=== PATIENT | female | born 1950 | race Caucasian/White ===

== ENCOUNTER 2018-12-19 14:12 | Emergency (ER) | payer MEDICARE, OTHER ==
[2018-12-19 14:25] VITALS: BP 152/82
--- NOTE | 2018-12-19 14:56 | UC ---
Hand/Wrist HPI - HPI Summary HPI Summary: 68-year-old woman comes in with a chief complaint of right wrist pain after a fall last evening. She fell with outstretched hand. Pain is primarily on the radial side and is worse when she moves her thumb. No loss of range of motion or decreased sensation or weakness. No skin break. She took some ibuprofen which decreases the pain. - History Of Current Complaint Chief Complaint: UCUpperExtremity Stated Complaint: RT WRIST INJURY Time Seen by Provider: 12/19/18 14:20 Pain Intensity: 1 - Allergies/Home Medications Allergies/Adverse Reactions: Allergies Allergy/AdvReac Type Severity Reaction Status Date / Time hydrocodone Allergy Severe Rash Verified 12/19/18 14:25 PMH/Surg Hx/FS Hx/Imm Hx Previously Healthy: Yes Endocrine History: Diabetes Cardiovascular History: Hypertension - Surgical History Surgical History: Yes Surgery Procedure, Year, and Place: 20 YRS AGO [place]ILLECTOMY, [place]. 1997 [place] [facility] [place] 2009-05/19/2015 MULTIPLE BILATERAL CYSTOSCOPIES RETROGRADE AND URETERAL ST[place]IONS[place] [facility] [place]. [place] LAPAROSCOPIC VENTRAL HERNIA REPAIR WITH MESH, [facility] [place] - Family History Known Family History: Positive: Non-Contributory - Social History Alcohol Use: Rare Alcohol Amount: 1 PER MONTH Substance Use Type: None Smoking Status (MU): Former Smoker Type: Cigarettes Amount Used/How Often: <LESS THAN A PPD Length of Time of Smoking/Using Tobacco: 10 Have You Smoked in the Last Year: No When Did the Patient Quit Smoking/Using Tobacco: 1985 Review of Systems All Other Systems Reviewed And Are Negative: Yes Constitutional: Positive: Negative Skin: Positive: Negative Eyes: Positive: Negative ENT: Positive: Negative Respiratory: Positive: Negative Cardiovascular: Positive: Negative Gastrointestinal: Positive: Negative Motor: Positive: Negative Neurovascular: Positive: Negative Musculoskeletal: Positive: Other: - SEE HPI Neurological: Positive: Negative Psychological: Positive: Negative Is Patient Immunocompromised?: No Physical Exam Triage Information Reviewed: Yes Appearance: Well-Appearing, No Pain Distress, Well-Nourished Vital Signs: Initial Vital Signs Temp 98.5 F 12/19/18 14:20 Pulse 66 12/19/18 14:20 Resp 18 12/19/18 14:20 BP 152/82 12/19/18 14:20 Pulse Ox 99 12/19/18 14:20 Vital Signs Reviewed: Yes Eye Exam: Normal Eyes: Positive: Conjunctiva Clear Neck: Positive: Supple Respiratory: Positive: No respiratory distress Musculoskeletal: Positive: Other: - Right wrist is tender to palpation at the base of the thumb and distal radius. No snuffbox tenderness. Fingers and wrist all have full range of motion however the pain increases with movement of the thumb. No sensation deficit. No skin break. Strength 5 out of 5. Normal capillary refill. Elbow has full range of motion. Neurological: Positive: Alert, Muscle Tone Normal Psychological: Positive: Age Appropriate Behavior Skin Exam: Normal Hand/Wrist Course/Dx - Course Course Of Treatment: Patient Name: RUSLAN CRUZ Medical Record#: [id number] Ordering Physician: Wilbert ROY Acct.#: [id number] : 1950 Age: 68 Sex: F Location: [facility] Exam Date: 12/19/18 143 ADM Status: REG ER Order Information: WRIST RIGHT 3+ VWS Accession Number: [id number] CPT: 07921 Indication: Right wrist pain 3 views of the wrist demonstrates no fracture. Degenerative changes of the first carpal metacarpal joint is noted. No other bone or joint abnormality is identified. IMPRESSION: Degenerative changes of the first carpal metacarpal joint without fracture. <Electronically signed by Sharla Figueroa MD in [place]> 12/19/18 2903 I discussed the x-rays with the patient. Patient was placed a thumb spica splint by nursing and clinic patient neurovascular intact after placement of the thumb spica splint. Patient will continue the ibuprofen as needed also icing it and resting it. Plan is to follow-up with sports medicine or orthopedics if not completely improved. - Differential Dx/Diagnosis Provider Diagnosis: Right wrist sprain Discharge - Sign-Out/Discharge Documenting (check all that apply): Patient Departure All imaging exams completed and their final reports reviewed: Yes - Discharge Plan Condition: Stable Disposition: HOME Patient Education Materials: Wrist Sprain (ED) Referrals: Fantasma Beal MD [Primary Care Provider] - [facility] [Provider Group] Additional Instructions: FOLLOW UP WITH SPORTS MEDICINE IF NOT COMPLETELY IMPROVED. GET RECHECKED SOONER IF YOUR CONDITION WORSENS OR ANY QUESTIONS OR CONCERNS. - Billing Disposition and Condition Condition: STABLE Disposition: Home
== END 2018-12-19 15:15 | disposition home or self-care (01) ==
LOC: UCEAST 14:12
DX: S63.501A Unspecified sprain of right wrist, initial encounter (principal); W18.30XA Fall on same level, unspecified, initial encounter; Y92.9 Unspecified place or not applicable; E11.9 Type 2 diabetes mellitus without complications; I10 Essential (primary) hypertension; Z87.891 Personal history of nicotine dependence
CPT/HCPCS: 99213; G0463

== ENCOUNTER 2019-02-09 20:46 | Emergency (ER) | payer MEDICARE, OTHER ==
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
[2019-02-09] MEDS ORDERED: Ketorolac INJ* 30 MG/ML 1 ML VIAL IV ONE (22:24)
[2019-02-09] MEDS ORDERED: Ondansetron INJ* 2 MG/ML VIAL IV ONE (22:25)
[2019-02-09 22:38] LABS: ABS Basophils 0.1 10^3/ul (0-0.2); ABS Lymphocytes 1.5 10^3/ul (1.0-4.8); ABS Monocytes 1.5 10^3/ul (0-0.8); ABS Neutrophils 17.2 10^3/ul (1.5-7.7); Hematocrit 38 % (35-47); Hemoglobin 12.7 g/dL (12.0-16.0); Lymphocyte % 7.4 %; Mean Corpuscular HGB Conc 33 g/dL (31-36); Mean Corpuscular Hemoglobin 29 pg (27-31); Mean Corpuscular Volume 85 fL (80-97); Mean Platelet Volume 7.3 fL (7.4-10.4); Platelet Count 196 10^3/uL (150-450); Red Blood Count 4.46 10^6 /uL (3.70-4.87); Red Cell Distribution Width 13 % (10-15); White Blood Count 20.3 10^3/uL (3.5-10.8)
[2019-02-09 22:54] LABS: Albumin 3.6 g/dL (3.2-5.2); Albumin/Globulin Ratio 1.3 (1-3); BUN/Creatinine Ratio 19.3 (8-20); C Reactive Protein 119.11 mg/L (<8.01); Calcium 8.4 mg/dL (8.6-10.3); EGFR African American 57.7 (>60); EGFR Non-African American 47.7 (>60); Globulin 2.7 g/dL (2-4); Potassium 3.7 mmol/L (3.5-5.0); Total Bilirubin 0.7 mg/dL (0.2-1.0); Total Protein 6.3 g/dL (6.4-8.9)
[2019-02-09 22:56] LABS: Troponin I 0.02 ng/mL (<0.04)
[2019-02-09 23:04] LABS: Urine Appearance Cloudy; Urine Bacteria 1+ (Absent); Urine Bilirubin Negative (Negative); Urine Blood 1+ (Negative); Urine Color Yellow; Urine Glucose Negative (Negative); Urine Ketones Negative (Negative); Urine Nitrite Negative (Negative); Urine Protein 2+(100 mg/dL) (Negative); Urine Red Blood Cell 2+(6-10/hpf) (Absent); Urine Specific Gravity 1.016 (1.010-1.030); Urine Squamous Epithelial Cell Present (Absent); Urine Urobilinogen Negative (Negative); Urine White Blood Cell 3+(>20/hpf) (Absent)
[2019-02-10] MEDS ORDERED: cefTRIAXone(*) 2 GM in NS 0.9% 100 ML* 100 ML IVPB ONE ×2
[2019-02-10 00:53] VITALS: BP 130/65
--- NOTE | 2019-02-10 14:07 | PN ---
Progress Note - Progress Note Date of Service: 02/09/19 Note: Lab called at 2:05 PM 2 positive blood cultures, both gram-negative bacilli Patient was seen here for UTI and weakness 20,000 white count She was placed on Keflex and discharged last evening Provider, Lynette, called at 2:05 PM and left message with patient Also called daughter, however was unable to leave a message Gave report to charge nurse, Chloe and will continue to call back patient
== END 2019-02-10 00:53 | disposition home or self-care (01) ==
LOC: ED 20:46
DX: N39.0 Urinary tract infection, site not specified (principal); E11.9 Type 2 diabetes mellitus without complications; D64.9 Anemia, unspecified; I10 Essential (primary) hypertension; E78.00 Pure hypercholesterolemia, unspecified; J45.909 Unspecified asthma, uncomplicated; K21.9 Gastro-esophageal reflux disease without esophagitis; F41.9 Anxiety disorder, unspecified; F32.9 Major depressive disorder, single episode, unspecified; Z90.710 Acquired absence of both cervix and uterus; Z98.84 Bariatric surgery status; Z87.891 Personal history of nicotine dependence; Z79.4 Long term (current) use of insulin; Z79.899 Other long term (current) drug therapy; Z88.5 Allergy status to narcotic agent
CPT/HCPCS: 36415; 80053; 81003; 81015; 83605; 84484; 85025; 86140; 87040; 87077; 87086; 87186; 87205; 93005; 96365; 96375; 99284; J0696; J1885; J2405

== ENCOUNTER 2019-02-10 21:15 | Inpatient (IN) | payer MEDICARE, OTHER ==
[2019-02-10 21:51] LABS: ABS Basophils 0.1 10^3/ul (0-0.2); ABS Lymphocytes 0.9 10^3/ul (1.0-4.8); ABS Monocytes 0.6 10^3/ul (0-0.8); ABS Neutrophils 10.1 10^3/ul (1.5-7.7); Eosinophil % 0.4 %; Hematocrit 36 % (35-47); Hemoglobin 12.1 g/dL (12.0-16.0); Lymphocyte % 8.1 %; Mean Corpuscular HGB Conc 34 g/dL (31-36); Mean Corpuscular Hemoglobin 29 pg (27-31); Mean Corpuscular Volume 87 fL (80-97); Mean Platelet Volume 7.7 fL (7.4-10.4); Platelet Count 169 10^3/uL (150-450); Red Blood Count 4.14 10^6 /uL (3.70-4.87); Red Cell Distribution Width 14 % (10-15); White Blood Count 11.7 10^3/uL (3.5-10.8)
[2019-02-10 22:08] LABS: ALT 105 U/L (7-52); AST 123 U/L (13-39); Albumin 3.5 g/dL (3.2-5.2); Albumin/Globulin Ratio 1.2 (1-3); Alkaline Phosphatase 102 U/L (34-104); Anion Gap 6 mmol/L (2-11); Blood Urea Nitrogen 34 mg/dL (6-24); CO2 Carbon Dioxide 27 mmol/L (22-32); Calcium 8.5 mg/dL (8.6-10.3); Chloride 104 mmol/L (101-111); EGFR African American 47.1 (>60); EGFR Non-African American 38.9 (>60); Globulin 2.9 g/dL (2-4); Glucose 341 mg/dL (70-100); Potassium 3.4 mmol/L (3.5-5.0); Sodium 137 mmol/L (135-145); Total Protein 6.4 g/dL (6.4-8.9)
--- NOTE | 2019-02-10 22:16 | ED ---
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 She was seen yesterday in [facility] for UTI, prescribed Keflex, and discharged home. She received a call for positive blood cultures and returned to [facility] afterwards. She rates her current pain severity a 3/10. No aggravating or alleviating factors noted. She also reports left sided flank pain and burning with urination. Pt has Hx of DM and HTN. Home Medications Medication Instructions Recorded Confirmed Type ALPRAZolam TAB* [Xanax TAB*] 0.25 mg PO Q6H PRN 11/27/14 02/10/19 History Albuterol HFA INHALER* [Ventolin 2 puff INH Q6H PRN 11/27/14 02/10/19 History HFA Inhaler*] Cyanocobalamin INJ * [Vitamin B12 1,000 mcg IM MONTHLY 05/12/15 02/10/19 History INJ *] Acetaminophen/Diphenhydramine 2 tab PO BEDTIME 02/09/19 02/10/19 History [Tylenol Pm Ex-Strength Caplet] Bupropion XL* [Wellbutrin XL *] 150 mg PO DAILY 02/09/19 02/10/[address] CAP* [Cymbalta CAP*] 60 mg PO QAM 02/09/19 02/10/19 History Gabapentin CAP(*) [Neurontin 300 300 mg PO TID 02/09/19 02/10/19 History CAP(*)] Insulin GLARGINE(*) [Lantus(*)] 14 units SUBCUT QAM 02/09/19 02/10/19 History LevoCETirizine TAB (NF) [Xyzal TAB 5 mg PO DAILY 02/09/19 02/10/19 History (NF)] Losartan TAB* [Cozaar TAB*] 100 mg PO QAM 02/09/19 02/10/19 History Montelukast Sodium TAB* [Singulair 10 mg PO DAILY 02/09/19 02/10/19 History 10 MG TAB*] Multivitamins/Minerals TAB* 1 tab PO QAM 02/09/19 02/10/19 History [Theragran/minerals TAB*] [place]-3 Fatty Acids (Nf) [Fish Oil 2,000 mg PO DAILY 02/09/19 02/10/19 History (NF)] SitaGLIPtin (NF) [Januvia (NF)] 100 mg PO DAILY 02/09/19 02/10/19 History Verapamil SR CAP* [Calan Sr CAP*] 180 mg PO QAM 02/09/19 02/10/19 History Cephalexin CAP* [Keflex CAP*] 500 mg PO QID 10 Days #40 cap 02/10/19 02/10/19 Rx traMADol TAB* [Ultram*] 50 mg PO TID PRN 02/10/19 02/10/19 History - History of Current Complaint Chief Complaint: EDGeneral Time Seen by Provider: 02/10/19 21:22 Hx Obtained From: Patient Onset/Duration: Started Days Ago, Still Present Timing: Constant, Lasting Days Initial Severity: Mild Current Severity: Mild Pain Intensity: 3 Pain Scale Used: 0-10 Numeric Aggravating Factors: Nothing Alleviating Factors: Nothing Associated Signs and Symptoms: Chills, Other: - pos - burning, fever, left sided flank pain - Allergy/Home Medications Allergies/Adverse Reactions: Allergies Allergy/AdvReac Type Severity Reaction Status Date / Time hydrocodone Allergy Severe Rash Verified 02/09/19 20:59 Home Medications: Home Medications traMADol TAB* [Ultram*] 50 mg PO TID PRN 02/10/19 [History Confirmed 02/10/19] PMH/Surg Hx/FS Hx/Imm Hx Endocrine/Hematology History: Reports: Hx Diabetes - TYPE 2, Hx Anemia - HX OF INFUSION - NONE IN 2 YEARS Denies: Hx Sickle Cell Disease, Hx Thyroid Disease Cardiovascular History: Reports: Hx Hypertension - WELL CONTROLLED WITH MEDICATION, Other Cardiovascular Problems/Disorders - CHOLESTEROL CONTROL WITH MEDS Denies: Hx Pacemaker/ICD Respiratory History: Reports: Hx Asthma - RESCUE INHALER - NO PROBLEM IN YEAR Denies: Hx Chronic Obstructive Pulmonary Disease (COPD), Other Respiratory Problems/Disorders GI History: Reports: Hx Gastroesophageal Reflux Disease, Hx Irritable Bowel Denies: Hx Ulcer, Other GI Disorders History: Reports: Hx Kidney Stones - MANY, SMALL NOW Denies: Hx Dialysis, Hx Renal Disease Musculoskeletal History: Reports: Hx Arthritis - RIGHT GREAT TOE, BILATERAL KNEES Denies: Other Musculoskeletal History Sensory History: Reports: Hx Contacts or Glasses - READING GLASSES Denies: Hx Hearing Aid Opthamlomology History: Reports: Hx Contacts or Glasses - READING GLASSES Neurological History: Reports: Hx Nerve Disease - FOBROMYALGIA, Other Neuro Impairments/Disorders - FIBROMYALGIA Psychiatric History: Reports: Hx Anxiety, Hx Depression - CONTROL WITH MEDS Denies: Hx Panic Disorder - Cancer History Hx Chemotherapy: No Hx Radiation Therapy: No - Surgical History Surgery Procedure, Year, and Place: 20 YRS AGO TONSILLECTOMY, [place]. 1997 PARTIAL HYSTERECTOMY, [facility]. 1997 GASTRIC BYPASS, [place]. 2009-05/19/2015 MULTIPLE BILATERAL CYSTOSCOPIES RETROGRADE AND URETERAL STENT INSERTIONS, [facility]. 2012 LAPAROSCOPIC VENTRAL HERNIA REPAIR WITH MESH, [facility] Anesthesia Reactions: Yes - PERIOD OF APNEA AFTER RETURNING TO FLOOR 2012 - NO PROBLEMS SINCE Infectious Disease History: No Infectious Disease History: Denies: Hx Hepatitis, Hx Human Immunodeficiency Virus (HIV), Traveled Outside the [place] in Last 30 Days - Family History Known Family History: Negative: Renal Disease - Social History Alcohol Use: Occasionally Alcohol Amount: 1 PER MONTH Hx Substance Use: No Substance Use Type: Reports: None Hx Tobacco Use: Yes Smoking Status (MU): Former Smoker Type: Cigarettes Amount Used/How Often: <LESS THAN A PPD Length of Time of Smoking/Using Tobacco: 10 Have You Smoked in the Last Year: No Review of Systems Positive: Fever, Chills Gastrointestinal: Other - pos - left sided flank pain Positive: burning All Other Systems Reviewed And Are Negative: Yes Physical Exam - Summary Physical Exam Summary: General: Well-developed, Well-nourished, obese, female. No acute distress. HEENT: Normocephalic, Atraumatic. Eyes: Conjuctiva normal, PERRL. Ears: TMs within normal limits. Nares: (-) discharge, (-) erythema. Oropharynx: Clear, mucous membranes moist, (-) exudates. Neck: Soft, FROM, (-) lymphadenopathy, (-) thyromegaly, (-) JVD. Cardiovascular: Normal sinus rhythm, (-) murmur. Lungs: Clear to auscultation bilaterally (-) wheezes, (-) rales, (-) rhonchi. Abdomen: Soft, non-tender, non-distended, (-) organomegaly, normal bowel sounds. Back: (-) CVA tenderness Extremities: No edema. Skin: Warm, dry, (-) rash. Neuro: Alert and oriented x3, no focal deficits. Psychiatric: Mood normal, affect normal. Triage Information Reviewed: Yes Vital Signs On Initial Exam: Initial Vitals Temp Pulse Resp BP Pulse Ox 97.8 F 62 18 141/61 96 02/10/19 21:17 02/10/19 21:17 02/10/19 21:17 02/10/19 21:17 02/10/19 21:17 Vital Signs Reviewed: Yes Diagnostics - Vital Signs Vital Signs Temp Pulse Resp BP Pulse Ox 02/10/19 21:17 97.8 F 62 18 141/61 96 - Laboratory Lab Results: Lab Results 02/10/19 02/10/19 02/10/19 Range/Units 21:44 21:44 21:44 WBC 11.7 H (3.5-10.8) 10^3/uL RBC 4.14 (3.70-4.87) 10^6 /uL Hgb 12.1 (12.0-16.0) g/dL Hct 36 (35-47) % MCV 87 (80-97) fL MCH 29 (27-31) pg MCHC 34 (31-36) g/dL RDW 14 (10-15) % Plt Count 169 (150-450) 10^3/uL MPV 7.7 (7.4-10.4) fL Neut % (Auto) 85.7 % Lymph % (Auto) 8.1 % Casey % (Auto) 5.4 % Eos % (Auto) 0.4 % Baso % (Auto) 0.4 % Absolute Neuts (auto) 10.1 H (1.5-7.7) 10^3/ul Absolute Lymphs (auto) 0.9 L (1.0-4.8) 10^3/ul Absolute Monos (auto) 0.6 (0-0.8) 10^3/ul Absolute Eos (auto) 0.0 (0-0.6) 10^3/ul Absolute Basos (auto) 0.1 (0-0.2) 10^3/ul Absolute Nucleated RBC 0.0 10^3/ul Nucleated RBC % 0.0 Sodium 137 (135-145) mmol/L Potassium 3.4 L (3.5-5.0) mmol/L Chloride 104 (101-111) mmol/L Carbon Dioxide 27 (22-32) mmol/L Anion Gap 6 (2-11) mmol/L BUN 34 H (6-24) mg/dL Creatinine 1.36 H (0.51-0.95) mg/dL Est GFR ( Amer) 47.1 (>60) Est GFR (Non-Af Amer) 38.9 (>60) BUN/Creatinine Ratio 25.0 H (8-20) Glucose 341 H (70-100) mg/dL Lactic Acid 1.1 (0.5-2.0) mmol/L Calcium 8.5 L (8.6-10.3) mg/dL Total Bilirubin 0.30 (0.2-1.0) mg/dL AST 123 H (13-39) U/L ALT 105 H (7-52) U/L Alkaline Phosphatase 102 (34-104) U/L Total Protein 6.4 (6.4-8.9) g/dL Albumin 3.5 (3.2-5.2) g/dL Globulin 2.9 (2-4) g/dL Albumin/Globulin Ratio 1.2 (1-3) Result Diagrams: 02/10/19 21:44 02/10/19 21:44 Lab Statement: Any lab studies that have been ordered have been reviewed, and results considered in the medical decision making process. - CT CT A/P CT Interpretation Completed By: Radiologist Summary of CT Findings: IMPRESSION: There is nonobstructive bilateral nephrolithiasis. No visible ureteral. calculus. ED Physician has reviewed this report. 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 She was seen yesterday in [facility] for UTI, prescribed Keflex, and discharged home. She also reports left sided flank pain and burning with urination. Test results normal except for WBC 11.7, Absolute Neuts 10.1, Absolute Lymphs 0.9, Potassium 3.4, BUN 34, Creatinine 1.36, BUN/ Creatinine 25.0, Glucose 341, Calcium 8.5, AST 123, 105, ALT, CRP 285.61, 1+ Urine protein, 2+ Urine WBC, 1+ Urine RBC, Ur Squamous Epith Cells Present, and 1 + Ur Glucose. A CT A/P reveals: There is nonobstructive bilateral nephrolithiasis. No visible ureteral calculus. Final Dx are UTI and positive blood cultures. Hospitalist was consulted @ 2230 and will admit the pt to [facility]. - Diagnoses Provider Diagnoses: UTI (urinary tract infection), Positive blood culture - Provider Notifications Discussed Care Of Patient With: Nain Grayson - Hospitalist will admit the pt to [facility]. Time Discussed With Above Provider: 22:30 Instructed by Provider To: Admit As Inpatient Discharge ED - Sign-Out/Discharge Documenting (check all that apply): Patient Departure - admit All imaging exams completed and their final reports reviewed: Yes Patient Received Moderate/Deep Sedation with Procedure: No - Discharge Plan Condition: Fair Disposition: ADMITTED TO [facility] - Billing Disposition and Condition Condition: FAIR Disposition: Admitted to [facility] - Attestation Statements Document Initiated by Mainibe: Yes Documenting Scribe: Milind Kim Provider For Whom Scribe is Documenting (Include Credential): Patty Geller MD Scribe Attestation: Milind Stephens, scribed for Patty Geller MD on 02/11/19 at 0421. Scribe Documentation Reviewed: Yes Provider Attestation: The documentation as recorded by the Milind prado accurately reflects the service I personally performed and the decisions made by , Patty Geller MD Status of Scribe Document: Viewed
[2019-02-10 22:20] LABS: Urine Appearance Clear; Urine Bacteria Absent (Absent); Urine Bilirubin Negative (Negative); Urine Blood Negative (Negative); Urine Color Yellow; Urine Glucose 1+(50 mg/dL) (Negative); Urine Ketones Negative (Negative); Urine Nitrite Negative (Negative); Urine Protein 1+(30 mg/dL) (Negative); Urine Red Blood Cell 1+(3-5/hpf) (Absent); Urine Specific Gravity 1.023 (1.010-1.030); Urine Squamous Epithelial Cell Present (Absent); Urine Urobilinogen Negative (Negative); Urine White Blood Cell 2+(11-20/hpf) (Absent)
[2019-02-10 23:03] LABS: C Reactive Protein 285.61 mg/L (<8.01)
[2019-02-10] MEDS ORDERED: NS 0.9% 1000 ML** 1,000 ML IV ONE (23:05)
[2019-02-11] MEDS ORDERED: ALPRAZolam TAB* 0.25 MG PO PRN (00:09)
[2019-02-11] MEDS ORDERED: Dextrose 50% VIAL 50 ml IV PUSH PRN (00:11)
[2019-02-11] MEDS: cefTRIAXone(*) 1 GM in NS 0.9% 50 ML* 50 ML IVPB SCH (00:37)
[2019-02-11] MEDS ORDERED: Albuterol HFA INHALER* 8 gm MDI INH PRN (01:42)
[2019-02-11] MEDS ORDERED: NS 0.9% 1000 ML** 1,000 ML IV ONE (02:39)
[2019-02-11] MEDS ORDERED: Ibuprofen TAB* 400 MG PO ONE (02:40)
[2019-02-11 02:55] LABS: Acetaminophen < 15 mcg/mL
[2019-02-11] MEDS: traMADol TAB* 50 MG PO PRN ×2 (04:00→12:50)
[2019-02-11 06:43] LABS: INR 1.17 (0.82-1.09)
[2019-02-11 06:45] LABS: ABS Lymphocytes 1.1 10^3/ul (1.0-4.8); ABS Monocytes 0.5 10^3/ul (0-0.8); ABS Neutrophils 7.3 10^3/ul (1.5-7.7); Eosinophil % 0.3 %; Hematocrit 33 % (35-47); Hemoglobin 11.1 g/dL (12.0-16.0); Lymphocyte % 12.1 %; Mean Corpuscular HGB Conc 34 g/dL (31-36); Mean Corpuscular Hemoglobin 29 pg (27-31); Mean Corpuscular Volume 86 fL (80-97); Mean Platelet Volume 8.2 fL (7.4-10.4); Platelet Count 157 10^3/uL (150-450); Red Blood Count 3.79 10^6 /uL (3.70-4.87); Red Cell Distribution Width 13 % (10-15)
[2019-02-11 06:54] LABS: BUN/Creatinine Ratio 23.1 (8-20); Calcium 8.1 mg/dL (8.6-10.3); EGFR African American 64.2 (>60); Potassium 3.3 mmol/L (3.5-5.0)
[2019-02-11] MEDS: Insulin LISPRO* 1 UNITS UNIT SUBCUT SCH ×4 (07:55→22:38)
--- NOTE | 2019-02-11 08:59 | HP ---
HISTORY AND PHYSICAL: DATE OF ADMISSION: 02/11/19. ADMITTING PROVIDER: Jacinto Mckeon M.D. PRIMARY CARE PROVIDER: Dr. Beal. OUTPATIENT UROLOGIST: Dr. Olivas. CHIEF COMPLAINT: Fevers, chills, bilateral flank pain, dysuria. HISTORY OF PRESENT ILLNESS: Desirae Gil is a 68-year-old female with a past medical history of insulin-dependent diabetes mellitus, hypertension, hyperlipidemia, fibromyalgia, and nephrolithiasis. She presented to the emergency room on 02/09/19, 2 days prior to admission with complaint of dysuria since the night before, and flank pain worse on the right that had started on 3 to 4 days prior to this admission. It was a sharp stabbing pain 7 to 10 at its worst radiating into the groins, occasionally also on the left side. Also had some neck discomfort and right arm discomfort. It is a throbbing like pain that comes in waves. She had a positive urine culture in the emergency room and was given Keflex 500 mg 4 times a day. She was called the next day to say that her blood cultures were positive with gram-negative bacilli, and she had had continued chills and shakes and pain, so re-presented to [facility] for further evaluation. On initial visit, she also had leukocytosis to 28.3, CRP of 119. On evaluation today, she had improved white count to 11.7, CRP was rechecked at 285, given her complaint of flank pain, history of nephrolithiasis , and waves of throbbing pain, ER tried to rule out obstructive kidney stones. She had a CT abdomen and pelvis without contrast, which demonstrated bilateral nephrolithiasis that was nonobstructing and no ureteral stones were noticed, and she was admitted for further treatment of gram- negative bacilli bacteremia , at this point 3 out of 4 vials, and resolving sepsis. She later spiked a fever up to 102.4. She got 2L total of normal saline. She had been taking Acetaminophen up to 1000 mg 3 times a day and has some transaminitis: AST was 123, ALT 105. Acetaminophen level was less than 15. She did have some headaches , nausea, and vomiting, and 2 days of diarrhea as well. PAST MEDICAL HISTORY: Insulin-dependent diabetes mellitus, hypertension, hyperlipidemia, fibromyalgia, and nephrolithiasis. MEDICATIONS: Included: 1. Tramadol 15 mg p.o. t.i.d. p.r.n. 2. Verapamil 108 mg p.o. q.a.m. 3. Januvia 100 mg daily. 4. Fish oil 2000 p.o. daily. 5. Singulair 10 mg p.o. daily. 6. Losartan 100 mg p.o. q.a.m. 7. Levocetirizine 5 mg p.o. daily. 8. Lantus 14 units subcutaneous q.a.m. 9. Neurontin 300 mg p.o. t.i.d. 10. Cymbalta 60 mg p.o. q.a.m. 11. Cyanocobalamin vitamin B12 of 1000 mcg monthly. 12. Recently started Keflex 500 mg p.o. 4 times a day. 13. Wellbutrin 150 mg p.o. daily. 14. Albuterol 2 puffs inhaled q.6 hours p.r.n. 15. Xanax 2.25 mg p.o. q.6 hours p.r.n. 16. Tylenol PM Extra Strength 2 tabs p.o. at bedtime, but has been taking throughout the day. ALLERGIES: HYDROCODONE, severe rash. FAMILY HISTORY: Mother at age 76 of COPD. Father at age 60 complications of diabetes. SOCIAL HISTORY: The patient quit smoking 25 to 30 years ago. Smoked 10 years total about one-third pack per day, occasional alcohol use. Denies drug use. 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 REVIEW OF SYSTEMS: Complete 14-point review of systems negative except as per HPI. PHYSICAL EXAMINATION GENERAL APPEARANCE: In no acute distress. VITAL SIGNS: Temperature initially was 97.8, but later increased to 102.4, heart rate 62, blood pressure 141/61, satting 96% on room air. HEENT: Normocephalic and atraumatic. Pupils are equal, round, and reactive to light. Extraocular motions are intact. No scleral icterus. LUNGS: Clear to auscultation bilaterally with no wheezing, rales or rhonchi. CARDIOVASCULAR: Regular rate and rhythm. No murmurs, gallops or rubs. ABDOMEN: Soft, nontender, nondistended. BACK: She has some pain to palpation of the bilateral flanks EXTREMITIES: Warm and well perfused. No peripheral edema. SKIN: No lesions or rashes. DIAGNOSTIC STUDIES/LAB DATA: Labs: White count 11.7, hemoglobin 12.1, hematocrit 36, platelets 169. Sodium 137, potassium 3.4, chloride 104, carbon dioxide 27, BUN 34, creatinine 1.36, glucose 341, lactic acid 1.1, total bili 0.3. AST 123, ALT 105, alk-phos 102, CRP 285, albumin 3.5. Urinalysis 1+ protein, 2+ wbc's, 1+ glucose. Microbiology 07/31, blood cultures from 02/10/19 at 0500 hours with gram- negative bacilli. Imaging: CT abdomen and pelvis without contrast demonstrated bilateral nephrolithiasis without any obstruction and no visible ureteral calculus. ASSESSMENT AND PLAN: Desirae Gil is a 68-year-old with past medical history of insulin-dependent diabetes mellitus, nephrolithiasis, hypertension, hyperlipidemia, fibromyalgia, who had a positive urinalysis 24 hours prior to admission, has been treated with Keflex at home, but had gram-negative bacilli bacteremia on that evaluation and returns with continued flank pain and chills and rigors, concerning for pyelonephritis and gram-negative bacteremia, being admitted. She does still meet sepsis criteria with leukocytosis and now with recurrent fever. CRP is elevated. CT abdomen and pelvis showed bilateral nephrolithiasis, but no obstruction or ureteral stones. I am starting ceftriaxone and following up her blood and urine cultures. She was given a second liter of bolus, avoiding Tylenol for now given her frequent Tylenol use at home and transaminitis. Consideration for urology consult depending on clinical course but certainly as an outpatient at the very least. No signs of obstructing stone that would require urgent decompression. The kidney function is slightly up with MICRO COMPUTER DATA PROCESSOR up to 1.36 from 1.14, 24 hours prior and will hold her losartan 100 mg also in the setting of resolving sepsis. For her insulin-dependent diabetes mellitus, continue her Lantus 14 units q.a.m. , [id number] testing q.a.c. and h.s. with a sliding scale insulin coverage. Reduce her Januvia dose in half given her creatinine clearance. For hypertension, continue her verapamil 180 mg daily, but as said holding her losartan in the setting of resolving sepsis and slight bump in creatinine. For fibromyalgia, continue gabapentin at reduced dosing of 300 mg p.o. b.i.d. For anxiety, continue her Xanax 0.25 mg p.o. q.6 hours p.r.n. For her pain, continue her home tramadol 50 mg p.o. t.i.d. p.r.n. We will get BMP and CBC daily. Follow up the INR that was added given her Tylenol use. She is a full code. Medical surrogate is her 2 daughters, Alysha Cason and Roberta Glez. She should get a heart-healthy carbohydrate consistent diet. She will be admitted to observation status. [id number]/[facility] #: [id number] MTDD
[2019-02-11] MEDS ORDERED: SitaGLIPtin (NF) 100 MG TAB PO SCH (09:00)
[2019-02-11] MEDS: Multivitamins/Minerals TAB PO SCH (11:14)
[2019-02-11] MEDS: Verapamil SR CAP* 180 MG PO SCH (11:15)
[2019-02-11] MEDS: Gabapentin CAP(*) 300 MG PO SCH ×2 (11:15→20:31)
[2019-02-11] MEDS: DULoxetine DR CAP* 60 MG CAP.DR PO SCH (11:15)
[2019-02-11] MEDS: BuPROPion XL* 150 MG TAB.XL PO SCH (11:15)
[2019-02-11] MEDS: Montelukast Sodium TAB* 10 MG PO SCH (11:15)
[2019-02-11] MEDS: Insulin GLARGINE(*) 1 UNITS UNIT SUBCUT SCH (11:16)
--- NOTE | 2019-02-11 14:53 | PN ---
Subjective Date of Service: 02/11/19 Interval History: Ms. Gil reports that she is feeling much better but she does still have some mild left sided flank pain. She denies chest pain, SOB, or nausea. She is tolerating oral intake well. Objective Active Medications: Acetaminophen (Tylenol Tab*) 650 mg PO Q6H PRN Albuterol (Ventolin Hfa Inhaler*) 2 puff INH Q6H PRN Alprazolam (Xanax Tab*) 0.25 mg PO Q6H PRN Bupropion HCl (Wellbutrin Xl *) 150 mg PO DAILY ELENA Dextrose (Dextrose 50% Vial 50 Ml*) 25 ml IV PUSH .FOR FS < 60 - SS PRN Duloxetine HCl (Cymbalta Cap*) 60 mg PO QAM ELENA Gabapentin (Neurontin Cap(*)) 300 mg PO BID ELENA Ceftriaxone Sodium 1 gm/ (Sodium Chloride) 50 mls @ 100 mls/hr IVPB Q24H [facility] Insulin Glargine (Lantus(*)) 14 units SUBCUT QAM [facility] Insulin Human Lispro (Humalog*) 0 units SUBCUT ACHS ELENA; Protocol Montelukast Sodium (Singulair Tab*) 10 mg PO DAILY [facility] Multivitamins/Minerals (Theragran/Minerals Tab*) 1 tab PO QAM ELENA Sitagliptin Phosphate (Januvia (Nf)) 50 mg PO DAILY [facility]; Protocol Tramadol HCl (Ultram*) 50 mg PO TID PRN Verapamil HCl (Calan Sr Cap*) 180 mg PO QAM ELENA Vital Signs: Temp Pulse Resp BP Pulse Ox 98.5 F 62 18 132/57 95 02/11/19 11:15 02/11/19 11:15 02/11/19 12:50 02/11/19 11:15 02/11/19 11:15 Oxygen Devices in Use Now: None Appearance: Female sitting up in bed in NAD Eyes: No Scleral Icterus Ears/Nose/Mouth/Throat: Mucous Membranes Moist Neck: Trachea Midline Respiratory: Symmetrical Chest Expansion and Respiratory Effort, Clear to Auscultation Cardiovascular: NL Sounds; No Murmurs; No JVD, No Edema Abdominal: NL Sounds; No Tenderness; No Distention Extremities: No Edema Skin: No Rash or Ulcers Neurological: Alert and Oriented x 3, NL Muscle Strength and Tone Nutrition: Taking PO's Result Diagrams: 02/11/19 05:44 02/11/19 05:44 Additional Lab and Data: . Assess/Plan/Problems-Billing Assessment: Ms. Gil is a 68 yo F with a PMH of IDDM, hypertension, fibromylagia, and nephrolithiasis who was admitted on 02/11/19 with e coli UTI with bacteremia. - Patient Problems (1) E coli bacteremia Comment: - Febrile 102.4, but does not meet sepsis criteria - Secondary to UTI with 3/4 blood cultures positive for ecoli prior to admission. History of nephrolithiasis, CT abd/pelvis found non-obstructing stones only. - Continue ceftriaxone (2) Diabetes Comment: - BGs 130s - Continue lantus with lispro SSI coverage - Hold januvia (3) Hypertension Comment: - SBP 130s - Continue verapamil, hold losartan while acutely ill (4) Anxiety Comment: - With depression - Continue alprazolam, wellbutrin, duloxetine (5) DVT prophylaxis Comment: - Heparin SQ (6) Full code status Comment: Status and Disposition: Inpatient with ecoli bacteremia. Anticipate discharge to home when medically stable.
[2019-02-11] MEDS ORDERED: Potassium Chlor TAB* 20 MEQ TAB.ER PO ONE (18:03)
[2019-02-11] MEDS ORDERED: Phenazopyridine TAB* 100 MG PO PRN (18:28)
[2019-02-11] MEDS: Acetaminophen TAB* 325 MG PO PRN (20:31)
[2019-02-11] MEDS ORDERED: Nystatin TOP POWDER* 15 GM BTL TOPICAL SCH (21:00)
[2019-02-11] MEDS: Heparin VIAL(*) 5000 UNITS/ML VIAL (FIVE THOUSAND) SUBCUT SCH (22:37)
[2019-02-12] MEDS: cefTRIAXone(*) 1 GM in NS 0.9% 50 ML* 50 ML IVPB SCH (00:40)
[2019-02-12] MEDS ORDERED: Albuterol/Ipratropium NEB.SOL* Albuterol 2.5 MG/Ipratropium 0.5 MG 3 ML INH ONE (01:44)
[2019-02-12 05:06] LABS: Hematocrit 34 % (35-47); Hemoglobin 11.4 g/dL (12.0-16.0); Mean Corpuscular HGB Conc 34 g/dL (31-36); Mean Corpuscular Hemoglobin 29 pg (27-31); Mean Corpuscular Volume 86 fL (80-97); Red Cell Distribution Width 13 % (10-15); White Blood Count 8.5 10^3/uL (3.5-10.8)
[2019-02-12 05:07] LABS: BUN/Creatinine Ratio 16.7 (8-20); Calcium 8.8 mg/dL (8.6-10.3); EGFR African American 70.4 (>60); EGFR Non-African American 58.1 (>60); Potassium 3.9 mmol/L (3.5-5.0)
[2019-02-12 05:38] LABS: ABS Monocytes 0.5 10^3/ul (0-0.8); Eosinophil % 0.5 %; Lymphocyte % 11.2 %; Mean Platelet Volume 8.1 fL (7.4-10.4); Platelet Count 171 10^3/uL (150-450)
[2019-02-12] MEDS: Acetaminophen TAB* 325 MG PO PRN ×2 (05:46→20:41)
[2019-02-12] MEDS: Heparin VIAL(*) 5000 UNITS/ML VIAL (FIVE THOUSAND) SUBCUT SCH ×3 (06:49→20:40)
[2019-02-12] MEDS: Insulin LISPRO* 1 UNITS UNIT SUBCUT SCH ×4 (09:08→20:40)
[2019-02-12] MEDS: Verapamil SR CAP* 180 MG PO SCH (09:09)
[2019-02-12] MEDS: Gabapentin CAP(*) 300 MG PO SCH ×2 (09:09→20:42)
[2019-02-12] MEDS: Atorvastatin* 20 MG TAB PO SCH (09:09)
[2019-02-12] MEDS: Montelukast Sodium TAB* 10 MG PO SCH (09:09)
[2019-02-12] MEDS: Multivitamins/Minerals TAB PO SCH (09:09)
[2019-02-12] MEDS: BuPROPion XL* 150 MG TAB.XL PO SCH (09:12)
[2019-02-12] MEDS: Insulin GLARGINE(*) 1 UNITS UNIT SUBCUT SCH (09:12)
[2019-02-12] MEDS: DULoxetine DR CAP* 60 MG CAP.DR PO SCH (09:12)
--- NOTE | 2019-02-12 13:01 | CONS ---
CONSULTATION REPORT: DATE OF CONSULT: 02/12/19 REQUESTING PROVIDER: MANUELA Gutierrez CONSULTING SERVICE: Infectious Disease. REASON FOR CONSULTATION: Fever. IMPRESSION: 1. Fever, rigors, Escherichia coli bacteremia, dysuria, left flank pain, taken together she has left-sided pyelonephritis. CT scan did not show obstruction or hydronephrosis. She does have bilateral nephrolithiasis. Because of her pyelonephritis, we can expect a few nights of ongoing fever that will slowly improve over time. So far, she has had resolution of her rigors and night sweats but still has occasional chills and feverish feeling. Her dysuria is resolved as well. Flank pain is easing off. 2. Insulin-dependent diabetes mellitus. 3. Nephrolithiasis. RECOMMENDATIONS: Continue ceftriaxone another 24 hours. By tomorrow, we can likely change her to oral antibiotics in the form of Bactrim Double Strength tablet by mouth twice a day for another 7 days. Follow up with Dr. Olivas as an outpatient. HISTORY OF PRESENT ILLNESS: This is a 68-year-old woman with a history of nephrolithiasis, not much in the way of urinary tract infection, admitted with dysuria and bacteremia. She had had a couple days of dysuria, was seen in the emergency room on the , urinalysis suggested infection. She was discharged on Keflex and isolate came back with E. coli in the urine and in the blood 3 of 4 bottles. It is resistant to ampicillin, cefazolin, Cipro and Levaquin; intermediate to Zosyn and Augmentin; sensitive to Bactrim and ceftriaxone. Because of bacteremia, she was called back to the hospital. She was started on IV antibiotics. Followup cultures were taken and since that time she has had nightly fevers to about 38.6 to 38.7. She was initially having drenching sweats , which she did not have last night. She was initially having shaking chills, which have stopped. Her dysuria has gone. Her left flank pain which developed about the time she came into the hospital is improving as well. Her appetite is good. She has been up, walking around a little bit, feeling better. Initial CRP was 285. PAST MEDICAL HISTORY: 1. Nephrolithiasis. 2. Insulin-dependent diabetes mellitus. 3. Hypertension. 4. Hyperlipidemia. 5. Fibromyalgia. MEDICATIONS: 1. Tylenol. 2. Albuterol. 3. Xanax as needed. 4. Lipitor. 5. Bupropion. 6. Duloxetine. 7. Gabapentin. 8. Heparin subcutaneous injection. 9. Insulin glargine. 10. Insulin lispro. 11. Singulair. 12. Ceftriaxone 1 g a day. 13. Tramadol. 14. Verapamil. ALLERGIES: HYDROCODONE caused rash. FAMILY HISTORY: No recurrent infections. Mother at 76 with COPD. Father at 60 from diabetes complications. SOCIAL HISTORY: She lives in this area in the summer and then in [place] for the rest of the year. She is a nonsmoker. REVIEW OF SYSTEMS: All negative, except as noted above to a 12-point review of systems. PHYSICAL EXAM: Vital Signs: Temperature 36.6, heart rate 55, respiratory rate 18, blood pressure 135/64, oxygen saturation 97% on room air. In general, she is awake, not in distress. Neurologic: She is oriented x3, follows commands. Moves all extremities. HEENT: There is no conjunctival hemorrhage. Oropharynx , no lesions. Neck is supple without mass. Lymph Nodes: There is no cervical , supraclavicular, inguinal, axillary, or epitrochlear lymphadenopathy. Heart has regular rate and rhythm without murmurs, rubs, or gallops. Lungs are clear to auscultation bilaterally. Abdomen is soft, nontender, and nondistended. There are bowel sounds present. There is left flank tenderness to palpation. There is no right flank tenderness. Skin: There is no rash or splinter hemorrhage. Musculoskeletal: There is no spinal tenderness to palpation or joint synovitis. DIAGNOSTIC STUDIES/LAB DATA: Creatinine 0.9. White blood cell count 8.5, hemoglobin 11, platelets 171,000. Please see impressions and recommendations outlined above that I discussed with MANUELA Gutierrez. Thank you for asking me to see Ms. Gil in consultation. [id number]/[facility] #: [id number] ELIESER
--- NOTE | 2019-02-12 13:34 | PN ---
Subjective Date of Service: 02/12/19 Interval History: October continues to c/o suprapubic pain, L flank pain, intermittent headache. She states she has been having difficulty with sleep while in the hospital and feels fatigued. She had a fever this a.m., but none since then and denies chills/sweats. She denies n/v/d. Last BM was Tuesday. She is urinating without difficulty and denies dysuria, frequency, hematuria. Objective Active Medications: Acetaminophen (Tylenol Tab*) 650 mg PO Q6H PRN Albuterol (Ventolin Hfa Inhaler*) 2 puff INH Q6H PRN Alprazolam (Xanax Tab*) 0.25 mg PO Q6H PRN Atorvastatin Calcium (Lipitor*) 20 mg PO DAILY ELENA Bupropion HCl (Wellbutrin Xl *) 150 mg PO DAILY ELENA Dextrose (Dextrose 50% Vial 50 Ml*) 25 ml IV PUSH .FOR FS < 60 - SS PRN Duloxetine HCl (Cymbalta Cap*) 60 mg PO QAM ELENA Gabapentin (Neurontin Cap(*)) 300 mg PO BID ELENA Heparin Sodium (Porcine) (Heparin Vial(*)) 5,000 units SUBCUT Q8HR ELENA Ceftriaxone Sodium 1 gm/ (Sodium Chloride) 50 mls @ 100 mls/hr IVPB Q24H ELENA Insulin Glargine (Lantus(*)) 14 units SUBCUT QAM ELENA Insulin Human Lispro (Humalog*) 0 units SUBCUT ACHS ELENA; Protocol Montelukast Sodium (Singulair Tab*) 10 mg PO DAILY ELENA Multivitamins/Minerals (Theragran/Minerals Tab*) 1 tab PO QAM ELENA Phenazopyridine HCl (Pyridium Tab*) 100 mg PO TID PRN Tramadol HCl (Ultram*) 50 mg PO TID PRN Verapamil HCl (Calan Sr Cap*) 180 mg PO QAM ELENA Vital Signs: Temp Pulse Resp BP Pulse Ox 98.2 F 71 18 140/75 96 02/12/19 15:15 02/12/19 15:15 02/12/19 16:55 02/12/19 15:15 02/12/19 15:15 Oxygen Devices in Use Now: None Appearance: Pt is laying in bed sleeping. She wakes easily; appears to have some discomfort with moving, but in NAD. Eyes: No Scleral Icterus, PERRLA Ears/Nose/Mouth/Throat: NL Teeth, Lips, Gums, Clear Oropharnyx, Mucous Membranes Moist Neck: NL Appearance and Movements; NL JVP, Trachea Midline, No Thyroid Enlargement, Masses Respiratory: Symmetrical Chest Expansion and Respiratory Effort, Clear to Auscultation Cardiovascular: NL Sounds; No Murmurs; No JVD, RRR, No Edema Abdominal: - - Soft with mild distention. BS in all quadrants. Abd with diffuse mild tenderness to palpation. Negative CVA tenderness. Extremities: No Edema, No Clubbing, Cyanosis Neurological: Alert and Oriented x 3 Result Diagrams: 02/13/19 05:27 02/13/19 05:27 Additional Lab and Data: . Microbiology and Other Data: Microbiology 02/10/19 21:48 Aerobic Blood Culture - Preliminary Blood Venous No Growth Day 1 Anaerobic Blood Culture - Preliminary No Growth Day 1 02/10/19 21:44 Aerobic Blood Culture - Preliminary Blood Venous No Growth Day 1 Anaerobic Blood Culture - Preliminary No Growth Day 1 Assess/Plan/Problems-Billing Assessment: Ms. Gil is a 68 yo F with a PMH of IDDM, hypertension, fibromylagia, and nephrolithiasis who was admitted on 02/11/19 with e coli UTI with bacteremia. - Patient Problems (1) E coli bacteremia Comment: - Febrile 102.4, but does not meet sepsis criteria - Secondary to L pyelonephritis with 3/4 blood cultures positive for ecoli prior to admission. - History of nephrolithiasis, CT abd/pelvis found non-obstructing stones only. - Continue ceftriaxone x24h, then to PO Bactim DS and f/u with Dr. Olivas (2) Diabetes Comment: - BGs 130s-190s - Continue lantus with lispro SSI coverage - Hold januvia (3) Hypertension Comment: - SBP 130-140s - Continue verapamil, hold losartan while acutely ill - Anticipate restart at discharge (4) Anxiety Comment: - With depression - Continue alprazolam, wellbutrin, duloxetine (5) DVT prophylaxis Comment: - Heparin SQ (6) Full code status Comment: Status and Disposition: Inpatient with ecoli bacteremia. Anticipate discharge to home when medically stable, likely tomorrow.
[2019-02-12] MEDS: traMADol TAB* 50 MG PO PRN (16:55)
[2019-02-12] MEDS: Acyclovir* 200 MG CAP PO SCH (20:41)
[2019-02-13] MEDS: cefTRIAXone(*) 1 GM in NS 0.9% 50 ML* 50 ML IVPB SCH (00:02)
[2019-02-13] MEDS: Heparin VIAL(*) 5000 UNITS/ML VIAL (FIVE THOUSAND) SUBCUT SCH (05:31)
[2019-02-13] MEDS: Acyclovir* 200 MG CAP PO SCH ×2 (05:31→08:09)
[2019-02-13 05:41] LABS: ABS Eosinophils 0.1 10^3/ul (0-0.6); ABS Lymphocytes 1.7 10^3/ul (1.0-4.8); ABS Monocytes 0.6 10^3/ul (0-0.8); ABS Neutrophils 3.3 10^3/ul (1.5-7.7); Eosinophil % 1.8 %; Hematocrit 33 % (35-47); Hemoglobin 10.8 g/dL (12.0-16.0); Lymphocyte % 29.1 %; Mean Corpuscular HGB Conc 33 g/dL (31-36); Mean Corpuscular Hemoglobin 29 pg (27-31); Mean Corpuscular Volume 86 fL (80-97); Mean Platelet Volume 7.7 fL (7.4-10.4); Nucleated Red Blood Cells % 0.1; Platelet Count 186 10^3/uL (150-450); Red Blood Count 3.79 10^6 /uL (3.70-4.87); Red Cell Distribution Width 14 % (10-15); White Blood Count 5.7 10^3/uL (3.5-10.8)
[2019-02-13 05:55] LABS: EGFR African American 72.1 (>60); EGFR Non-African American 59.6 (>60); Potassium 4.2 mmol/L (3.5-5.0)
[2019-02-13] MEDS: Insulin LISPRO* 1 UNITS UNIT SUBCUT SCH ×2 (07:59→12:45)
[2019-02-13] MEDS: Gabapentin CAP(*) 300 MG PO SCH (08:09)
[2019-02-13] MEDS: Verapamil SR CAP* 180 MG PO SCH (08:09)
[2019-02-13] MEDS: Montelukast Sodium TAB* 10 MG PO SCH (08:09)
[2019-02-13] MEDS: BuPROPion XL* 150 MG TAB.XL PO SCH (08:09)
[2019-02-13] MEDS: Insulin GLARGINE(*) 1 UNITS UNIT SUBCUT SCH (08:09)
[2019-02-13] MEDS: DULoxetine DR CAP* 60 MG CAP.DR PO SCH (08:09)
[2019-02-13] MEDS: Multivitamins/Minerals TAB PO SCH (08:10)
[2019-02-13] MEDS: Atorvastatin* 20 MG TAB PO SCH (08:10)
--- NOTE | 2019-02-13 10:37 | PN ---
Progress Note - Progress Note Date of Service: 02/13/19 SOAP: Subjective: CC: Left-sided pyelonephritis HPI: Ms. Gil is a 68 yo female with PMH significant for nephrolithiasis, DM2, HTN, HLD, and fibromyalgia; who presented to the emergency room with complaints of fever, rigors and dysuria. Denies fever, chills, nausea, vomiting, or diarrhea. Reports fever overnight. Continues to have lower back pain, she feels this may be her chronic back pain. Objective: Vital Signs - 8 hr 02/13/19 02/13/19 02/13/19 03:18 07:15 08:00 Temperature 97.3 F 98.9 F Pulse Rate 63 67 Respiratory 18 20 20 Rate Blood Pressure 124/59 173/78 (mmHg) O2 Sat by Pulse 93 95 Oximetry 02/13/19 02/13/19 02/13/19 08:09 08:14 09:56 Temperature Pulse Rate Respiratory 18 18 Rate Blood Pressure 138/57 (mmHg) O2 Sat by Pulse Oximetry Physical Exam: General: NAD, laying in bed Neurological: Alert and Oriented x4 HEENT: Moist MM, no thrush Cardiovascular: Heart rate regular Respiratory: Lung sounds clear bilateral Abdominal: Bowel sounds present; ABD soft, non tender and non distended. Left sided CVA tenderness Skin: No rash Laboratory Results - last 24 hr 02/13/19 02/13/19 02/13/19 05:27 05:27 07:35 WBC 5.7 RBC 3.79 Hgb 10.8 L Hct 33 L MCV 86 MCH 29 MCHC 33 RDW 14 Plt Count 186 MPV 7.7 Neut % (Auto) 58.1 Lymph % (Auto) 29.1 [place] % (Auto) 10.3 Eos % (Auto) 1.8 Baso % (Auto) 0.7 Absolute Neuts (auto) 3.3 Absolute Lymphs (auto) 1.7 Absolute Monos (auto) 0.6 Absolute Eos (auto) 0.1 Absolute Basos (auto) 0.0 Absolute Nucleated RBC 0.0 Nucleated RBC % 0.1 Sodium 141 Potassium 4.2 Chloride 106 Carbon Dioxide 30 Anion Gap 5 BUN 16 Creatinine 0.94 Est GFR ( Amer) 72.1 Est GFR (Non-Af Amer) 59.6 BUN/Creatinine Ratio 17.0 Glucose 93 POC Glucose (mg/dL) 95 Calcium 9.0 Microbiology 02/10/19 21:48 Aerobic Blood Culture - Preliminary Blood Venous No Growth Day 2 Anaerobic Blood Culture - Preliminary No Growth Day 2 02/10/19 21:44 Aerobic Blood Culture - Preliminary Blood Venous No Growth Day 2 Anaerobic Blood Culture - Preliminary No Growth Day 2 Assessment: 1. Left-sided pyelonephritis. In the setting of fever, left flank pain, and Ecoli bacteremia. Initial urine culture and blood cultures with E coli. Rigors and dysuria have resolved. Repeat blood cultures with no growth. Continues to have back pain, chronic back pain at baseline. Fever overnight of 101.3, intermittent fevers are expected for a few days in the setting of pyelonephritis. 2. DM2. Plan: Continue Ceftriaxone while in the hospital, transition to Bactrim DS 1 tablet by mouth BID for 7 days. Follow up with Dr. Olivas outpatient.
[2019-02-13 11:29] VITALS: BP 147/59
--- NOTE | 2019-02-13 13:12 | DS ---
CC: Dr. Beal; Dr. Olivas * DISCHARGE SUMMARY: DATE OF ADMISSION: 02/11/19 DATE OF DISCHARGE: 02/13/19 PRIMARY CARE PROVIDER: Dr. Beal. UROLOGIST: Dr. Olivas. ATTENDING PHYSICIAN: Dr. Middleton * (dictated by MANUELA Gutierrez). PRIMARY DIAGNOSES: 1. Left-sided pyelonephritis. 2. Escherichia coli bacteremia. 3. Nephrolithiasis. SECONDARY DIAGNOSES: 1. Diabetes mellitus, insulin dependent. 2. Hypertension. 3. Hyperlipidemia. 4. Fibromyalgia. 5. Nephrolithiasis. STUDIES WHILE IN THE HOSPITAL: CT abdomen and pelvis with contrast, impression : There is no obstructive bilateral nephrolithiasis, no visible ureteral calculus. DISCHARGE MEDICATIONS: Home medications: 1. Acetaminophen/diphenhydramine 2 tabs p.o. at bedtime. 2. Albuterol HFA inhaler 2 puffs inhalation q.6 hours p.r.n. shortness of breath/wheeze. 3. Alprazolam 0.25 mg p.o. q.6 hours p.r.n. anxiety. 4. Bupropion XL 150 mg p.o. daily. 5. Cyanocobalamin injection 1000 mcg IM monthly. 6. Duloxetine DR 60 mg p.o. q.a.m. 7. Gabapentin 300 mg p.o. t.i.d. 8. Insulin glargine 14 units subcu q.a.m. 9. Levocetirizine 5 mg p.o. daily. 10. Losartan 100 mg p.o. daily. 11. Montelukast sodium 10 mg p.o. daily. 12. Multivitamin/minerals 1 tab p.o. daily. 13. Hines-3 fatty acids 2000 mg p.o. daily. 14. Sitagliptin 100 mg p.o. daily. 15. Tramadol 50 mg p.o. t.i.d. p.r.n. pain. 16. Verapamil SR 180 mg p.o. q.a.m. 17. Atorvastatin 20 mg p.o. daily. New home medications: 1. Bactrim DS 800/160 one tab p.o. b.i.d. x7 days. 2. Acyclovir 200 mg p.o. 5 times daily x4 days. HISTORY OF PRESENT ILLNESS/HOSPITAL COURSE: Ms. Gil is a 68-year-old female with a past medical history of diabetes mellitus, insulin-dependent; hypertension; hyperlipidemia; fibromyalgia; nephrolithiasis, who presented to the ER initially on 02/09/19 with complaints of dysuria and flank pain. She was noted to have a positive urine culture for E. coli. She was started on Keflex 500 mg 4 times daily and returned home. Blood cultures were obtained the following day. Blood cultures were found to be positive with gram-negative bacilli and the patient continued to have rigors and flank pain, so she [place] [facility] [place] further evaluation. For full and complete details, please see the history and physical dictated by Dr. Jacinto Mckeon, but in short, a CT of the abdomen and pelvis was ordered, which showed bilateral nephrolithiasis, nonobstructing, no ureteral stones. She was admitted for treatment of gram- negative bacilli bacteremia, which was found to be E. coli. She was treated with ceftriaxone. Blood cultures were repeated and show no growth to date. The patient did continue to have fevers throughout her stay, but was noted to improve in abdominal pain, flank pain and dysuria. She notes no dysuria at discharge and mild left flank pain. Infectious Disease was consulted and recommended continuing ceftriaxone while inpatient with discharge on Bactrim DS b.i.d. x14 days. She will then follow up with Dr. Olivas. At the time of discharge, the patient denies fevers and chills, but was noted to have an overnight fever of 100.3. Tylenol was given and this relieved the fever. She notes that she does have a headache for which she has been taking Tylenol. She again does have mild left flank pain and pain with abdominal flexion, but no pain in the abdominal area at rest. She denies chest pain, shortness of breath , vision changes, dizziness, lightheadedness, loss of consciousness, abdominal pain, nausea, vomiting, diarrhea, dysuria, hematuria, frequency, urgency, or pain in the extremities. Ms. Gil is stable for discharge to home. REVIEW OF SYSTEMS: A 14-point review of systems has been performed and all the pertinent positives and negatives are in the HPI. All other systems are negative. PHYSICAL EXAMINATION: Vital signs are temperature 98.9 temporal, heart rate 67 , respiratory rate 18, oxygen saturation 95% on room air, blood pressure 138/ 58. General: Ms. Gil is a well-developed, well-nourished, middle-aged white woman, who is sitting up in bed. She appears to be in no acute distress. She is pleasant and cooperative. She has mild discomfort with moving, but does not have difficulty with movement. HEENT: PERRL. EOMI. Nonicteric sclerae. Hearing grossly intact. Oral mucous membranes are moist. There is a lesions on the lip. The pharynx is clear. The patient is noted to have a cold sore on the bottom lip right side. Cardiovascular: Regular rate and rhythm with S1, S2 present without murmurs, rubs, clicks, or gallops. There is no JVD. There is no peripheral edema. Radial and pedal pulses are palpable. Pulmonary: Symmetrical chest expansion without use of accessory muscles. Lungs are clear to auscultation bilaterally without rhonchi, wheezes, or rales. There is no digital clubbing or cyanosis. Abdomen: Obese. Bowel sounds noted in all quadrants. The abdomen is soft. There is no tenderness to palpation. There is no CVA tenderness. Musculoskeletal: Full range of motion without pain or deformities. Neuro: The patient is awake. She is alert and oriented x3 with cranial nerves grossly intact. She is able to move all of her extremities with 5/5 motor strength in the upper and lower extremities bilaterally. Strength is equal. DISCHARGE PLAN: Ms. Gil will be discharged to home. CONDITION: Good. DIET: Heart healthy. ACTIVITY: As tolerated. MEDICATIONS: 1. Start Bactrim DS 800 mg p.o. b.i.d. 2. Continue acyclovir as prescribed for 4 more days. EDUCATION: 1. Follow up with primary care provider in 4 to 7 days. 2. Follow up with Dr. Olivas in 4 to 7 days. 3. Please return to the ER or nearest hospital if you experience any worsening of symptoms, chest pain or discomfort, shortness of breath, high fevers, chills , night sweats, dysuria, worsening flank pain, nausea, vomiting, hematuria, dizziness, lightheadedness, loss of consciousness, or any other worrisome signs or symptoms. This is a summarized report of a complex medical history and hospital stay. For further details, please see the entire medical record. TIME SPENT: Approximately 35 minutes was spent on this discharge, greater than half that time was spent [id number] with the patient discussing discharge plans and instructions. MANUELA DIAZ [id number]/[facility] #: [id number] MTDD
== END 2019-02-13 13:25 | disposition home or self-care (01) | DRG 690 ==
LOC: ED 21:15 → MED 02-11 01:37 → OBSVTOIN 02-11 10:34
PROVIDERS: ADMIT Internal Medicine; ATTEND Internal Medicine
DX: N10 Acute pyelonephritis (principal); B96.20 Unspecified Escherichia coli [E. coli] as the cause of diseases classified elsewhere; N20.0 Calculus of kidney; E11.9 Type 2 diabetes mellitus without complications; I10 Essential (primary) hypertension; E78.5 Hyperlipidemia, unspecified; M79.7 Fibromyalgia; Z79.84 Long term (current) use of oral hypoglycemic drugs; Z79.4 Long term (current) use of insulin; Z79.1 Long term (current) use of non-steroidal anti-inflammatories (NSAID); Z79.899 Other long term (current) drug therapy; Z88.8 Allergy status to other drugs, medicaments and biological substances; Z82.5 Family history of asthma and other chronic lower respiratory diseases; Z83.3 Family history of diabetes mellitus; Z87.891 Personal history of nicotine dependence
CPT/HCPCS: 36415; 74176; 80048; 80053; 80329; 81003; 81015; 83036; 83605; 84484; 85025; 85610; 86140; 87040; 87077; 87086; 87186; 87205; 93005; 94640; 96365; 96375; 99284; A9270-GY; G0480; J0696; J1644; J1885; J2405

== ENCOUNTER 2019-02-25 11:59 | Emergency (ER) | payer MEDICARE, OTHER ==
[2019-02-25 12:05] VITALS: BP 162/88
--- NOTE | 2019-02-25 12:38 | UC ---
Skin Complaint HPI - HPI Summary HPI Summary: 68-year-old female presents for evaluation of a tick bite to her left lower leg. States she found a tick last night and immediately removed. Unsure of how long the tick was attached but states that the tick was not engorged. Requesting treatment for Lyme disease. Patient is also requesting a urinalysis be perfomed as she was admitted on 02/11/2019 to [facility] for pyelonephritis, equal or bacteremia, and nephrolithiasis and discharged on 2018. She received IV antibiotics and then was discharged on a seven-day course of Bactrim DS 7 days which she completed 5 days ago. Patient was supposed to follow-up with Dr. Eugene within a week of discharge however patient never scheduled this appointment and states that she can't get in in time as she is leaving to go to [place] in 2 days. Denies fever, chills, bull's-eye rash, flulike symptoms, myalgias, joint pain, the pain, nausea, vomiting, dysuria, frequency, urgency, or hematuria. - History of Current Complaint Chief Complaint: UCSkin Time Seen by Provider: 02/25/19 12:18 Stated Complaint: TICK BITE Hx Obtained From: Patient Pain Intensity: 0 - Allergy/Home Medications Allergies/Adverse Reactions: Allergies Allergy/AdvReac Type Severity Reaction Status Date / Time hydrocodone Allergy Severe Rash Verified 02/25/19 12:06 PMH/Surg Hx/FS Hx/Imm Hx - Additional Past Medical History Additional PMH: Fibromyalgia Endocrine History: Diabetes, Dyslipidemia Cardiovascular History: Hypertension GI/ History: Kidney Stones - Surgical History Surgical History: Yes Surgery Procedure, Year, and Place: 20 YRS AGO T[place]ILLECTOMY, [place]. [place] [facility] [place]. 2009-05/19/2015 MULTIPLE BILATERAL CYSTOSCOPIES RETROGRADE AND URETERAL ST[place] [facility] [place] 2012 LAPAROSCOPIC VENTRAL HERNIA REPAIR WITH [place] [facility] [place] - Family History Known Family History: Positive: Non-Contributory Negative: Renal Disease - Social History Alcohol Use: Occasionally Alcohol Amount: 1 PER MONTH Substance Use Type: None Smoking Status (MU): Former Smoker Type: Cigarettes Amount Used/How Often: <LESS THAN A PPD Length of Time of Smoking/Using Tobacco: 10 Have You Smoked in the Last Year: No When Did the Patient Quit Smoking/Using Tobacco: 1985 - Immunization History Most Recent Influenza Vaccination: 02/01/19 Most Recent Pneumonia Vaccination: 2017 Review of Systems All Other Systems Reviewed And Are Negative: Yes Constitutional: Negative: Fever, Chills Skin: Negative: Rash Respiratory: Positive: Negative Cardiovascular: Positive: Negative Gastrointestinal: Negative: Abdominal Pain, Vomiting, Nausea Genitourinary: Negative: Dysuria, Hematuria, Frequency, Urgency Musculoskeletal: Negative: Arthralgia, Myalgia Neurological: Negative: Headache Is Patient Immunocompromised?: No Physical Exam - Summary Physical Exam Summary: GENERAL APPEARANCE: Well developed, well nourished, alert and cooperative, and appears to be in no acute distress. CARDIAC: Normal S1 and S2. No S3, S4 or murmurs. Rhythm is regular. There is no peripheral edema, cyanosis or pallor. Extremities are warm and well perfused. Capillary refill is less than 2 seconds. Peripheral pulses intact. LUNGS: Clear to auscultation without rales, rhonchi, wheezing or diminished breath sounds. ABDOMEN: Positive bowel sounds. Soft, nondistended, nontender. No guarding or rebound. No masses or hepatosplenomegally. No CVA tenderness. MUSKULOSKELETAL: ROM intact to all extremities. No joint erythema or tenderness. Normal muscular development. Normal gait. EXTREMITIES: Circular erythematous lesion <1 cm in diameter with central darkening to the proximal, anterior left lower leg. SKIN: Skin normal color, texture and turgor. Triage Information Reviewed: Yes Vital Signs: Initial Vital Signs Temp 96.3 F 02/25/19 12:00 Pulse 69 02/25/19 12:00 Resp 16 02/25/19 12:00 BP 162/88 02/25/19 12:00 Pulse Ox 100 02/25/19 12:00 Vital Signs Reviewed: Yes Course/Dx - Course Course Of Treatment: 68-year-old female presents for evaluation of a tick bite to her left lower leg. States she found a tick last night and immediately removed. Unsure of how long the tick was attached but states that the tick was not engorged. Requesting treatment for Lyme disease. Patient is also requesting a urinalysis be perfomed as she was admitted on 02/11/2019 to [facility] for pyelonephritis, equal or bacteremia, and nephrolithiasis and discharged on 2018. She received IV antibiotics and then was discharged on a seven-day course of Bactrim DS 7 days which she completed 5 days ago. Patient was supposed to follow-up with Dr. Eugene within a week of discharge however patient never scheduled this appointment and states that she can't get in in time as she is leaving to go to [place] in 2 days. Denies fever, chills, bull's-eye rash, flulike symptoms, myalgias, joint pain, the pain, nausea, vomiting, dysuria, frequency, urgency, or hematuria. Afebrile. Hypertensive otherwise vital signs stable. Patient had a circular erythematous lesion <1 cm in diameter with central darkening to the proximal, anterior left lower leg consistent with a localized reaction to a tick bite but otherwise unremarkable exam. Discussed with the patient that based on her history and lack of symptoms , treatment with an antibiotic is not recommended at this time especially considering her recent hospitalization and antibiotic use. I did perform a [id number] urinalysis which was normal. The patient was advised of the results. I have recommended that she follow up with her primary care provider or urology as previously directed at the time of discharge. Anticipatory guidance and warning symptoms were reviewed with the patient. Verbalizes understanding and agrees with plan of care. - Differential Diagnoses - Skin Complaint Differential Diagnoses: Local Allergic Reaction, Tick Born Illness - Diagnoses Provider Diagnosis: Tick bite of lower leg, History of pyelonephritis, History of nephrolithiasis, History of bacteremia Discharge ED - Sign-Out/Discharge Documenting (check all that apply): Patient Departure All imaging exams completed and their final reports reviewed: No Studies - Discharge Plan Condition: Stable Disposition: HOME Patient Education Materials: Tick Bite (ED) Referrals: Fantasma Beal MD [Primary Care Provider] - Additional Instructions: Ticks transmit infection only after they have attached and then taken a blood meal from their new host. A tick that has not attached cannot not pass any infection. Since the deer tick that transmits Lyme disease typically feeds for more than 36 hours before transmitting the organisim that causes Lyme disease, the risk of acquiring Lyme disease from an tick bite is extremely small, even in an area where the disease is common. There is no benefit of blood testing for Lyme disease at the time of the tick bite because even people who become infected will not have a positive blood test until approximately two to six weeks after the tick bite. To try to avoid getting bitten by a tick, you can: * Wear shoes, long-sleeved shirts, and long pants when you go outside. Keep ticks away from your skin by tucking your pants into your socks. * Wear light colors so you can spot any ticks that get on your clothes. * Wear bug spray or cream that contains DEET. (Do not use DEET on babies younger than 2 months.) On your clothes and gear, you can use bug repellents that have a chemical called "permethrin." * Shower within 2 hours of being outdoors if you think you have been in an area where there are ticks. * Put dry clothes briefly (for about 4 minutes) in a dryer after being outdoors. * Check your clothes and body for ticks after being outdoors. Be sure to check your scalp, waist, armpits, groin, and backs of your knees. Check your children , too. After a tick bite, you will need to monitor for signs of Lyme disease over the next several weeks even if you have been given antibiotics to prevent the infection. Seek immediate medical attention if you develop a bullseye rash, fever, flu-like symptoms including headache, stiff neck, fatigue, muscle aches, joint pain or swelling. Your urine test in the clinic today showed no evidence of infection. You should follow up with your primary care or urology regarding your recent hospitalization as you were directed. - Billing Disposition and Condition Condition: STABLE Disposition: Home
== END 2019-02-25 13:05 | disposition home or self-care (01) ==
LOC: UCEAST 11:59
DX: S80.862A Insect bite (nonvenomous), left lower leg, initial encounter (principal); M79.7 Fibromyalgia; I10 Essential (primary) hypertension; Z88.5 Allergy status to narcotic agent; Z87.442 Personal history of urinary calculi; Z87.891 Personal history of nicotine dependence; Z87.448 Personal history of other diseases of urinary system; W57.XXXA Bitten or stung by nonvenomous insect and other nonvenomous arthropods, initial encounter; Y92.9 Unspecified place or not applicable
CPT/HCPCS: 81003; 99212; G0463

== ENCOUNTER 2019-05-16 06:16 | Day surgery (SDC) | payer MEDICARE, OTHER ==
[~2019-05-16 06:16] MED LIST: Acetaminophen TAB* 325 MG PO PRN; Buffered Lidocaine 1% SYRIN* 1 ML/SYRINGE INTRADERM ONE
[2019-05-16] MEDS ORDERED: Midazolam* 1 MG/ML 5 ML VIAL (5 MG) ONE (07:24)
[2019-05-16] MEDS ORDERED: hydrALAZINE IV* 20 MG/ML VIAL ONE (07:33)
[2019-05-16 09:27] VITALS: BP 177/78
--- NOTE | 2019-05-16 09:49 | OP ---
DATE OF OPERATION: 05/16/2019 - [facility] DATE OF : 1950. SURGEON: Domo Ji M.D. PREOPERATIVE DIAGNOSIS: Cataract left eye. POSTOPERATIVE DIAGNOSIS: Cataract left eye. OPERATIVE PROCEDURE: Extracapsular cataract extraction with intraocular lens implant left eye. DESCRIPTION OF PROCEDURE: The patient was brought to the operating room after being given 1/2% Alcaine with epinephrine drops in the preoperative area. The eye was prepped and draped in the usual sterile fashion. Sterile drape and eyelid speculum were placed. Again, topical 1/2% Alcaine with epinephrine was given. A paracentesis incision was made at the 3 o'clock position with the No.75 blade. Clear cornea incision 2.2 x 2.2-mm was created at the 6 o'clock position starting at the anterior limbus using the 2.2-mm keratome. The anterior chamber was irrigated with 0.4 mL of 1% non-preservative intracameral lidocaine and filled with DisCoVisc. A capsulorrhexis was completed using the cystotome and the Utrata forceps. Hydrodissection was performed with balanced salt solution. The lens nucleus was removed with the Phacoemulsification handpiece without incident. Cortex was removed with the irrigation-aspiration handpiece. The capsular bag was re-inflated using DisCoVisc and an [id number] implant was inserted with the shooter. The pupil was only 3 mm. A Malyugin ring was placed prior to capsulorrhexis and removed after insertion of the lens. The irrigation-aspiration handpiece was used to remove all residual DisCoVisc. The eye was refilled with balanced salt solution and the wound checked and found to be watertight. Topical Maxitrol drops were given. Indication for complex cataract surgery: Pupil abnormalities requiring pupil dilation device. [id number]/[facility] #: [id number] ELIESER
[2019-05-16] MEDS ORDERED: Ketorolac 0.5% OPHTH (NF) 0.5 % 5 ML BTL ONE (11:15)
[2019-05-16] MEDS ORDERED: Povidone Iodine 5% OPTH* 30 ML BTL ONE (11:15)
[2019-05-16] MEDS ORDERED: acetaZOLAMIDE TAB* 250 MG ONE (11:15)
[2019-05-16] MEDS ORDERED: Phenylephrine OPHTH SOL 2.5%* 2 ML ONE (11:15)
[2019-05-16] MEDS ORDERED: Lidocaine 2% w/ EPI 1:200,000* 20 ML SDV VIAL ONE (11:15)
[2019-05-16] MEDS ORDERED: Cyclopentolate 1% OPTH.SOL* 2 ML BTL ONE (11:15)
[2019-05-16] MEDS ORDERED: Neomycin/Polymy/Dex OPTH.SUSP* MAXITROL 0.1% 5 ML ONE (11:15)
[2019-05-16] MEDS ORDERED: Lidocaine 1% MPF ** 5 ML VIAL ONE (11:15)
[2019-05-16] MEDS ORDERED: Proparacaine 0.5% OPHTH.SOL* 15 ML BTL ONE (11:16)
== END 2019-05-16 08:18 | disposition home or self-care (01) ==
LOC: OREAST 06:16
PROVIDERS: ATTEND Specialist
DX: H25.12 Age-related nuclear cataract, left eye (principal); H21.562 Pupillary abnormality, left eye; H33.8 Other retinal detachments; E11.3293 Type 2 diabetes mellitus with mild nonproliferative diabetic retinopathy without macular edema, bilateral; Z87.891 Personal history of nicotine dependence; Z79.4 Long term (current) use of insulin; Z79.84 Long term (current) use of oral hypoglycemic drugs; I10 Essential (primary) hypertension; E78.00 Pure hypercholesterolemia, unspecified; M79.7 Fibromyalgia; J45.909 Unspecified asthma, uncomplicated; Z87.442 Personal history of urinary calculi
CPT/HCPCS: A9270-GY; J0360; J2250; V2632